=== PATIENT | female | born 1945 | race Caucasian/White ===

== ENCOUNTER 2019-04-30 11:52 | Emergency (ER) | payer MEDICARE, OTHER ==
[2019-04-30] MEDS ORDERED: HYDROCODONE/ACETAMINOPHEN 5/325 MG TAB ONE (13:06)
== END 2019-04-30 13:27 | disposition home or self-care (01) ==
LOC: EDH 11:52
DX: S42.291A Other displaced fracture of upper end of right humerus, initial encounter for closed fracture (principal); W01.0XXA Fall on same level from slipping, tripping and stumbling without subsequent striking against object, initial encounter; Y93.01 Activity, walking, marching and hiking; Y92.89 Other specified places as the place of occurrence of the external cause; Y99.8 Other external cause status
CPT/HCPCS: 73030